=== PATIENT | male | born 1955 | race Caucasian/White ===

== ENCOUNTER 2017-02-10 09:53 | Emergency (ER) | payer OTHER ==
--- NOTE | 2017-02-10 11:11 | RAD ---
Indication: Loss of peripheral vision in LEFT lower LEFT eye. No additional neurologic deficits. Comparison: No relevant prior exams available on the [facility] for comparison. Technique: Noncontrast CT vertex of skull through foramen magnum. Report: The sulci, ventricles, and basal cisterns are normal for age. Maxwell matter white matter differentiation is preserved without evidence for edema. No intra or extra axial hemorrhage, mass, or fluid collection detected. Unremarkable orbital contents. Unremarkable calvarium and skull base. Unremarkable scalp. The visualized paranasal sinuses and mastoid air spaces are clear. IMPRESSION: Negative unenhanced head CT.
[2017-02-10 11:43] LABS: Hematocrit 40 % (42-52); Hemoglobin 13.6 g/dl (14.0-18.0); Mean Corpuscular HGB Conc 34 g/dl (31-36); Mean Corpuscular Hemoglobin 31 pg (27-31); Mean Corpuscular Volume 91 fL (80-94); Mean Platelet Volume 9 um3 (7.4-10.4); Red Blood Count 4.46 10^6/ul (4.0-5.4); Red Cell Distribution Width 13 % (10.5-15); White Blood Count 6.1 10^3/ul (3.5-10.8)
[2017-02-10 12:01] LABS: Albumin 4.1 g/dL (3.2-5.2); BUN/Creatinine Ratio 17.4 (8-20); EGFR African American 116.7 (>60); EGFR Non-African American 90.7 (>60); Globulin 2.5 g/dL (2-4); Potassium 4.1 mmol/L (3.5-5.0); Total Bilirubin 1.3 mg/dL (0.2-1.0); Total Protein 6.6 g/dL (6.4-8.9)
--- NOTE | 2017-02-10 12:34 | ED ---
Shabana Nguyen Auryana, scribed for Elijah Castrejon MD on 02/10/17 at 1232 . Throat Pain/Nasal Congestion - HPI Summary HPI Summary: 62 year old male presents with vision loss in the lower right visual field starting 5 days ago worse since 2 days ago. Patient states that 2 days ago - the area of vision loss increased. He also has a slight BUI. He denies any eye pain, increased lacrimation, or any prior episodes. He reports that he has not seen an sales operations specialist in the last 5 years. Per nurse - patient had dental work done the same day as the vision loss started. PMHx is significant for HTN , HLD, GERD, hiatal hernia, shoulder surgery, back surgery, and cholecystectomy. He is a former smoker with occasional alcohol use but denies any recreational drug use. FHx of CAD/OK. - History of Current Complaint Chief Complaint: EDEyeProblem Time Seen by Provider: 02/10/17 10:22 Onset/Duration: Gradual Onset, Lasting Days - 5, Still Present, Worse Since - 2 Severity: Moderate Associated Signs And Symptoms: Negative: Negative - DECREASED VISION IN LEFT EYE , SLIGHT BUI - Allergies/Home Medications Allergies/Adverse Reactions: Allergies Allergy/AdvReac Type Severity Reaction Status Date / Time Hydrochlorothiazide Allergy Dizziness Verified 11/23/15 16:41 [From Avalide] Irbesartan [From Avalide] Allergy Dizziness Verified 11/23/15 16:41 Nifedipine [From Adalat] Allergy Swelling Verified 11/23/15 16:41 PMH/Surg Hx/FS Hx/Imm Hx Endocrine/Hematology History: Denies: Hx Diabetes Cardiovascular History: Reports: Hx Hypercholesterolemia, Hx Hypertension Denies: Hx Congestive Heart Failure Respiratory History: Reports: Hx Asthma - A CHILD GI History: Reports: Hx Gall Bladder Disease - NOW, Hx Gastroesophageal Reflux Disease, Other GI Disorders - hiatal hernia History: Denies: Hx Renal Disease Musculoskeletal History: Reports: Hx Back Problems - 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 right shoulder 2001. REMOVAL OF CANCER ON R SIDE OF HEAD. REMOVAL OF BENIGN TUMER ON ABOVE OF L EYE, dajuan 1 2013 Hx Anesthesia Reactions: No Infectious Disease History: No Infectious Disease History: Denies: Traveled Outside the [place] in Last 30 Days - Social History Occupation: Employed Full-time Lives: With Family Alcohol Use: None Substance Use Type: Reports: None Smoking Status (MU): Former Smoker Review of Systems Constitutional: Negative Positive: Other - vision loss in the left eye ENT: Negative Cardiovascular: Negative Respiratory: Negative Gastrointestinal: Negative Genitourinary: Negative Musculoskeletal: Negative Skin: Negative Positive: Headache Psychological: Normal All Other Systems Reviewed And Are Negative: Yes Physical Exam - Summary Physical Exam Summary: VITAL SIGNS: Reviewed. GENERAL: Patient is a well developed and nourished male who is lying comfortable in the stretcher. Patient is not in any acute respiratory distress. HEAD AND FACE: No signs of trauma. No ecchymosis, hematomas or skull depressions. No sinus tenderness. EYES: PERRLA, EOMI x 2, No injected conjunctiva, no nystagmus. VISION LOSS IN THE PERIPHERAL, LOWER LEFT OUTER AND MEDIAL ASPECT OF THE EYE. EARS: Hearing grossly intact. Ear canals and tympanic membranes are within normal limits. MOUTH: Oropharynx within normal limits. NECK: Supple, trachea is midline, no adenopathy, no JVD, no carotid bruit, no c- spine tenderness, neck with full ROM. CHEST: Symmetric, no tenderness at palpation LUNGS: Clear to auscultation bilaterally. No wheezing or crackles. CVS: Regular rate and rhythm, S1 and S2 present, no murmurs or gallops appreciated. ABDOMEN: Soft, non-tender. No signs of distention. No rebound no guarding, and no masses palpated. Bowel sounds are normal. EXTREMITIES: FROM in all major joints, no edema, no cyanosis or clubbing. NEURO: Alert and oriented x 3. No acute neurological deficits. Speech is normal and follows commands. SKIN: Dry and warm Triage Information Reviewed: Yes Vital Signs On Initial Exam: Initial Vitals Temp Pulse Resp BP Pulse Ox 97.5 F 78 20 164/80 98 02/10/17 09:55 02/10/17 09:55 02/10/17 09:55 02/10/17 09:55 02/10/17 09:55 Vital Signs Reviewed: Yes - Stephanie Coma Scale Coma Scale Total: 15 Diagnostics - Vital Signs Vital Signs Temp Pulse Resp BP Pulse Ox 02/10/17 09:59 97.4 F 79 16 164/80 100 02/10/17 09:55 97.5 F 78 20 164/80 98 - Laboratory Lab Results: Lab Results 02/10/17 02/10/17 02/10/17 Range/Units 11:31 11:31 11:31 WBC 6.1 (3.5-10.8) 10^3/ul RBC 4.46 (4.0-5.4) 10^6/ul Hgb 13.6 L (14.0-18.0) g/dl Hct 40 L (42-52) % MCV 91 (80-94) fL MCH 31 (27-31) pg MCHC 34 (31-36) g/dl RDW 13 (10.5-15) % Plt Count 182 (150-450) 10^3/ul MPV 9 (7.4-10.4) um3 Neut % (Auto) 63.8 (38-83) % Lymph % (Auto) 26.1 (25-47) % Magoffin % (Auto) 7.5 (1-9) % Eos % (Auto) 1.7 (0-6) % Baso % (Auto) 0.9 (0-2) % Absolute Neuts (auto) 3.9 (1.5-7.7) 10^3/ul Absolute Lymphs (auto) 1.6 (1.0-4.8) 10^3/ul Absolute Monos (auto) 0.5 (0-0.8) 10^3/ul Absolute Eos (auto) 0.1 (0-0.6) 10^3/ul Absolute Basos (auto) 0.1 (0-0.2) 10^3/ul Absolute Nucleated RBC 0.01 10^3/ul Nucleated RBC % 0.1 ESR Pending APTT 29.2 (26.0-36.3) seconds Sodium (133-145) mmol/L Potassium (3.5-5.0) mmol/L Chloride (101-111) mmol/L Carbon Dioxide (22-32) mmol/L Anion Gap (2-11) mmol/L BUN (6-24) mg/dL Creatinine (0.67-1.17) mg/dL Est GFR ( Amer) (>60) Est GFR (Non-Af Amer) (>60) BUN/Creatinine Ratio (8-20) Glucose (70-100) mg/dL Lactic Acid 1.5 (0.5-2.0) mmol/L Calcium (8.6-10.3) mg/dL Total Bilirubin (0.2-1.0) mg/dL AST (13-39) U/L ALT (7-52) U/L Alkaline Phosphatase (34-104) U/L Total Protein (6.4-8.9) g/dL Albumin (3.2-5.2) g/dL Globulin (2-4) g/dL Albumin/Globulin Ratio (1-3) // Range/Units 11:31 WBC (3.5-10.8) 10^3/ul RBC (4.0-5.4) 10^6/ul Hgb (14.0-18.0) g/dl Hct (42-52) % MCV (80-94) fL MCH (27-31) pg MCHC (31-36) g/dl RDW (10.5-15) % Plt Count (150-450) 10^3/ul MPV (7.4-10.4) um3 Neut % (Auto) (38-83) % Lymph % (Auto) (25-47) % Magoffin % (Auto) (1-9) % Eos % (Auto) (0-6) % Baso % (Auto) (0-2) % Absolute Neuts (auto) (1.5-7.7) 10^3/ul Absolute Lymphs (auto) (1.0-4.8) 10^3/ul Absolute Monos (auto) (0-0.8) 10^3/ul Absolute Eos (auto) (0-0.6) 10^3/ul Absolute Basos (auto) (0-0.2) 10^3/ul Absolute Nucleated RBC 10^3/ul Nucleated RBC % ESR APTT (26.0-36.3) seconds Sodium 136 (133-145) mmol/L Potassium 4.1 (3.5-5.0) mmol/L Chloride 103 (101-111) mmol/L Carbon Dioxide 24 (22-32) mmol/L Anion Gap 9 (2-11) mmol/L BUN 15 (6-24) mg/dL Creatinine 0.86 (0.67-1.17) mg/dL Est GFR ( Amer) 116.7 (>60) Est GFR (Non-Af Amer) 90.7 (>60) BUN/Creatinine Ratio 17.4 (8-20) Glucose 105 H (70-100) mg/dL Lactic Acid (0.5-2.0) mmol/L Calcium 9.0 (8.6-10.3) mg/dL Total Bilirubin 1.30 H (0.2-1.0) mg/dL AST 16 (13-39) U/L ALT 24 (7-52) U/L Alkaline Phosphatase 41 (34-104) U/L Total Protein 6.6 (6.4-8.9) g/dL Albumin 4.1 (3.2-5.2) g/dL Globulin 2.5 (2-4) g/dL Albumin/Globulin Ratio 1.6 (1-3) Result Diagrams: 02/10/17 11:31 02/10/17 11:31 Lab Statement: Any lab studies that have been ordered have been reviewed, and results considered in the medical decision making process. Re-Evaluation - Re-Evaluation First Eval Re-Evaluation Time: 11:30 Change: Unchanged EENT Course/Dx - Course Assessment/Plan: 62 year old male presents with vision loss in the lower right visual field starting 5 days ago worse since 2 days ago. Patient states that 2 days ago - the area of vision loss increased. He also has a slight BUI. He denies any eye pain, increased lacrimation, or any prior episodes. He reports that he has not seen an sales operations specialist in the last 5 years. PMHx is significant for HTN, HLD, GERD, hiatal hernia, shoulder surgery, back surgery, and cholecystectomy. He is a former smoker with occasional alcohol use but denies any recreational drug use. FHx of CAD/OK. Blood work wnl except for glucose of 105. Head CT impression by radiology: negative head CT. Patient Visual acuity as above. Discussed with Dr. Garg (Neurologist) thinks that patient has a primarily ocular pathology and recommends an ophthalmology consult. Patient is hemodynamically stable and alert and oriented x 3. I discussed all the findings and test results with the patient. Patient was instructed to return to the emergency room immediately if any of the symptoms return or worsens. Plan of care was discussed with the patient and understands and agrees. All questions were answered at patient satisfaction. There were no further complaints or concerns. Lung exam before discharge: CTA B/L. Good air exchange. No wheezing or crackles heard. CVS: S1 and S2 present. No murmurs appreciated. Patient is alert and oriented x 3. Patient is hemodynamically stable. Patient will be discharged home with follow up PCP in the next 2-3 days - Diagnoses Provider Diagnoses: DECREASED VISUAL ACUITY - LEFT EYE - Provider Notifications Discussed Care of Patient with: DR. GARG Time Discussed With Above Provider: 12:23 - BELIEVES PRIMARY AN OPTHALAMICAL ABNORMALITY Discharge - Discharge Plan Condition: Stable Disposition: HOME Referrals: Elijah Karimi MD [Medical Doctor] - 3 Days The documentation as recorded by the Shabana magana Auryana accurately reflects the service I personally performed and the decisions made by me, Elijah Castrejon MD.
[2017-02-10 12:41] VITALS: BP 141/82
[2017-02-10 13:35] LABS: Erythrocyte Sed Rate 11 mm/Hr (0-20)
== END 2017-02-10 12:42 | disposition home or self-care (01) ==
LOC: ED 09:53
DX: H54.7 Unspecified visual loss (principal); K21.9 Gastro-esophageal reflux disease without esophagitis; F90.9 Attention-deficit hyperactivity disorder, unspecified type; Z87.891 Personal history of nicotine dependence; I10 Essential (primary) hypertension; E78.00 Pure hypercholesterolemia, unspecified
CPT/HCPCS: 36415; 70450; 80053; 83605; 85025; 85652; 85730; 99283

== ENCOUNTER 2019-01-14 14:41 | Emergency (ER) | payer OTHER ==
[2019-01-14] MEDS ORDERED: Famotidine IV * 20 MG in NS 0.9% 100 ML* 100 ML IVPB ONE (14:51)
[2019-01-14] MEDS ORDERED: Ondansetron INJ* 2 MG/ML VIAL IV ONE (14:52)
[2019-01-14] MEDS ORDERED: Lactated Ringers 1000 ML Bag* 1,000 ML IV SCH (15:00)
[2019-01-14 15:09] LABS: ABS Basophils 0.1 10^3/ul (0-0.2); ABS Eosinophils 0.1 10^3/ul (0-0.6); ABS Lymphocytes 1.5 10^3/ul (1.0-4.8); ABS Monocytes 0.7 10^3/ul (0-0.8); ABS Neutrophils 8.7 10^3/ul (1.5-7.7); ABS Nucleated RBC 0 10^3/ul; Eosinophil % 1.2 %; Hematocrit 41 % (36-46); Lymphocyte % 13.8 %; Mean Corpuscular HGB Conc 34 g/dL (31-36); Mean Corpuscular Hemoglobin 31 pg (27-31); Mean Corpuscular Volume 91 fL (80-94); Mean Platelet Volume 8.6 fL (7.4-10.4); Nucleated Red Blood Cells % 0; Platelet Count 221 10^3/uL (150-450); Red Blood Count 4.47 10^6 /uL (4.18-5.48); Red Cell Distribution Width 13 % (10.5-15); White Blood Count 11.2 10^3/uL (3.5-10.8)
[2019-01-14 15:17] LABS: Activated Partial Thrombo Time 32.1 seconds (26.0-36.3); INR 0.97 (0.82-1.09)
--- NOTE | 2019-01-14 15:35 | ED ---
Abdominal Pain/Male - HPI Summary HPI Summary: Pt is a 64 y/o M presenting to the ED with a chief complaint of LLQ abd pain onset about 4 hours ago. The pain is described as aching, rated at a constant 4/ 10, radiating across his lower abd to his midline, and came on right after lunch. Pt reports associated nausea, vomiting, and a small headache. The pt reports his appetite was fine until the pain came on. His pain is worsened upon sitting up, and slightly alleviates with lying flat. He denies fever, chills, diaphoresis, CP, SOB, changes in vision or hearing, sore throat, cough, congestion, black or bloody stools, urinary sx, or significant involuntary weight loss/gain. The pt has a notable hx of diverticulitis, and the last time he had an attack, his physician said he would have to have surgery d/t finding of a hole in his bowels. - History of Current Complaint Chief Complaint: EDAbdPain Stated Complaint: ABD PAIN PER PT Time Seen by Provider: 01/14/19 14:49 Hx Obtained From: Patient Onset/Duration: Sudden Onset, Lasting Hours, Still Present Timing: Constant, Lasting Hours Severity Initially: Moderate Severity Currently: Moderate Pain Intensity: 4 Pain Scale Used: 0-10 Numeric Location: Discrete At: LLQ Radiates: Yes Radiates to: RLQ Character: Cramping Aggravating Factor(s): Other: - sitting up Alleviating Factor(s): Position - lying supine Associated Signs And Symptoms: Positive: Nausea, Vomiting. Negative: Diaphoresis, Fever, Cough, Chest Pain, Blood in Stool, Urinary Symptoms - Allergies/Home Medications Allergies/Adverse Reactions: Allergies Allergy/AdvReac Type Severity Reaction Status Date / Time hydrochlorothiazide Allergy Intermediate Dizziness Verified 01/14/19 14:47 [From Avalide] irbesartan [From Avalide] Allergy Intermediate Dizziness Verified 01/14/19 14:47 nifedipine [From Adalat] Allergy Intermediate Swelling Verified 01/14/19 14:47 tadalafil [From Cialis] Allergy Unknown Verified 01/14/19 14:47 Reaction Details PMH/Surg Hx/FS Hx/Imm Hx Previously Healthy: No Endocrine/Hematology History: Denies: Hx Diabetes Cardiovascular History: Reports: Hx Hypercholesterolemia, Hx Hypertension Denies: Hx Congestive Heart Failure, Hx Pacemaker/ICD Respiratory History: Reports: Hx Asthma - A CHILD GI History: Reports: Hx Gall Bladder Disease - NOW, Hx Gastroesophageal Reflux Disease, Other GI Disorders - hiatal hernia, diverticulitis History: Denies: Hx Renal Disease Musculoskeletal History: Reports: Hx Back Problems - 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 right shoulder 2001. REMOVAL OF CANCER ON R SIDE OF HEAD. REMOVAL OF BENIGN TUMER ON ABOVE OF L EYE, dajuan 2013. GALLBLADDER Hx Anesthesia Reactions: No Infectious Disease History: No Infectious Disease History: Denies: Traveled Outside the [place] in Last 30 Days - Family History Known Family History: Positive: Hypertension - Social History Alcohol Use: Weekly Hx Substance Use: No Substance Use Type: Reports: None Hx Tobacco Use: Yes Smoking Status (MU): Former Smoker Review of Systems Negative: Fever, Chills, Skin Diaphoresis, Other - involuntary weight loss/gain Eyes: Negative Negative: Sore Throat, Other - congestion Negative: Chest Pain Negative: Shortness Of Breath, Cough Positive: Abdominal Pain, Vomiting, Nausea. Negative: Other - black/bloody stools, any changes in BMs Genitourinary: Negative Positive: Headache All Other Systems Reviewed And Are Negative: Yes Physical Exam - Summary Physical Exam Summary: Constitutional: Well-developed, Well-nourished, Alert. (-) Distressed Skin: Warm, Dry, Reflects adequate perfusion HENT: Normocephalic; Atraumatic Eyes: Conjunctiva normal Neck: Musculoskeletal ROM normal neck. (-) JVD, (-) Stridor, (-) Tracheal deviation Cardio: Rhythm regular, rate normal, Heart sounds normal; Intact distal pulses; The pedal pulses are 2+ and symmetric. Radial pulses are 2+ and symmetric. Pulmonary/Chest wall: Effort normal. (-) Respiratory distress, (-) Wheezes, (-) Rales Abd: Soft, (+) LLQ tenderness radiating to midline, (-) Distension, (-) Guarding , (-) Rebound Musculoskeletal: 2+ pitting edema on LLE noted from pts L sock. Pts R sock has lost elasticity so true measurement and comparison is not fully obtainable. There are good pedal pulses. Neuro: Alert, Oriented x3 Psych: Mood and affect Normal Triage Information Reviewed: Yes Vital Signs On Initial Exam: Initial Vitals Temp Pulse Resp BP Pulse Ox 98.3 F 73 18 181/87 97 01/14/19 14:44 01/14/19 14:44 01/14/19 14:44 01/14/19 14:44 01/14/19 14:44 Vital Signs Reviewed: Yes Diagnostics - Vital Signs Vital Signs Temp Pulse Resp BP Pulse Ox 01/14/19 15:13 78 98 01/14/19 15:11 80 172/88 97 01/14/19 14:44 98.3 F 73 18 181/87 97 - Laboratory Lab Results: Lab Results 01/14/19 01/14/19 01/14/19 Range/Units 15:01 15:01 15:01 WBC 11.2 H (3.5-10.8) 10^3/uL RBC 4.47 (4.18-5.48) 10^6 /uL Hgb 14.0 (14.0-18.0) g/dL Hct 41 (36-46) % MCV 91 (80-94) fL MCH 31 (27-31) pg MCHC 34 (31-36) g/dL RDW 13 (10.5-15) % Plt Count 221 (150-450) 10^3/uL MPV 8.6 (7.4-10.4) fL Neut % (Auto) 77.1 % Lymph % (Auto) 13.8 % Schuyler % (Auto) 6.6 % Eos % (Auto) 1.2 % Baso % (Auto) 1.3 % Absolute Neuts (auto) 8.7 H (1.5-7.7) 10^3/ul Absolute Lymphs (auto) 1.5 (1.0-4.8) 10^3/ul Absolute Monos (auto) 0.7 (0-0.8) 10^3/ul Absolute Eos (auto) 0.1 (0-0.6) 10^3/ul Absolute Basos (auto) 0.1 (0-0.2) 10^3/ul Absolute Nucleated RBC 0 10^3/ul Nucleated RBC % 0 INR (Anticoag Therapy) 0.97 (0.82-1.09) APTT 32.1 (26.0-36.3) seconds Sodium Pending Potassium Pending Chloride Pending Carbon Dioxide Pending Anion Gap Pending BUN Pending Creatinine Pending Est GFR ( Amer) Pending Est GFR (Non-Af Amer) Pending BUN/Creatinine Ratio Pending Glucose Pending Calcium Pending Magnesium Pending Total Bilirubin Pending AST Pending ALT Pending Alkaline Phosphatase Pending Troponin I 0.00 (<0.04) ng/mL Total Protein Pending Albumin Pending Globulin Pending Albumin/Globulin Ratio Pending Lipase Pending Result Diagrams: 01/14/19 15:01 01/14/19 15:01 Lab Statement: Any lab studies that have been ordered have been reviewed, and results considered in the medical decision making process. - CT Abd/pelv CT CT Interpretation Completed By: Radiologist Summary of CT Findings: Diffuse wall thickening of the sigmoid colon with extensive diverticulosis in this region. However, there is no associated pericolonic fat stranding or inflammatory change. Findings could represent colitis with mild mural thickening versus artifact from under distention in transverse and left colon. Subtle diverticulitis less likely. Radiographic followup is recommended to ensure resolution as underlying neoplasm is not excluded. ED physician has reviewed this report. - Ultrasound No standard instances Ultrasound Interpretation Completed By: Radiologist Summary of Ultrasound Findings: Bilateral LE US. No evidence for left or right DVT. ED physician has reviewed this report. - EKG 1505 Cardiac Rate: NL - 87bpm EKG Rhythm: Sinus Rhythm ST Segment: Non-Specific Ectopy: None EKG Comparison: No Significant Change Summary of EKG Findings: An EKG at 1505 shwos NSR 87bpm with old, nonspecific T wave abnormalities, old inferior Q waves, QTc increase from 427 to 276, and nonspecific IVCD. QTc is slightly increased from 07/12/14, otherwise no acute changes. Abdominal Pain Male Course/Dx - Course Course Of Treatment: Pt is a 64 y/o M presenting to the ED with a chief complaint of LLQ abd pain onset about 4 hours ago. The pain is described as aching, rated at a constant 4/10, radiating across his lower abd to his midline , and came on right after lunch. Pt reports associated nausea, vomiting, and a small headache. The pt reports his appetite was fine until the pain came on. His pain is worsened upon sitting up, and slightly alleviates with lying flat. He denies fever, chills, diaphoresis, CP, SOB, changes in vision or hearing, sore throat, cough, congestion, black or bloody stools, urinary sx, or significant involuntary weight loss/gain. The pt has a notable hx of diverticulitis, and the last time he had an attack, his physician said he would have to have surgery d/t finding of a hole in his bowels. In the ED course, the pt received Pepcid and Zofran to alleviate his nausea. D/t LE edematous findings on physical exam, a duplex US has been ordered to r/o a blood clot. CT with IV contrast has also been ordered to r/o diverticulitis. An EKG at 1505 shwos NSR 87bpm with old, nonspecific T wave abnormalities, old inferior Q waves , QTc increase from 427 to 276, and nonspecific IVCD. QTc is slightly increased from 07/12/14, otherwise no acute changes. Pts chemistry shows magnesium of 1.7, lactic acid of 1.4, troponin of 0.00, and bloodwork shows slightly elevated WBC of 11.2. Bilat LE US shows no left or right DVT. Abd/pelv CT shows: Diffuse wall thickening of the sigmoid colon with extensive diverticulosis in this region. However, there is no associated pericolonic fat stranding or inflammatory change. Findings could represent colitis with mild mural thickening versus artifact from under distention in transverse and left colon. Subtle diverticulitis less likely. Radiographic followup is recommended to ensure resolution as underlying neoplasm is not excluded. Since the CT abd/ pelv shows diverticulosis and potentially diverticulitis, I will be discharging the pt home with instructions to follow up with his surgeon, and dx of colitis, diverticulosis, and early diverticulitis. He is stable and has been so during the whole shift. - Diagnoses Provider Diagnoses: Colitis, Diverticulosis, Diverticulitis Discharge - Sign-Out/Discharge Documenting (check all that apply): Patient Departure Patient Received Moderate/Deep Sedation with Procedure: No - Discharge Plan Condition: Good Disposition: HOME Prescriptions: Ciprofloxacin TAB* [Cipro 500 MG TAB*] 500 mg PO BID #19 tab metroNIDAZOLE [Flagyl 500 MG TAB] 500 mg PO TID #29 tab Patient Education Materials: Diverticulitis (ED) Print Language: CHINESE Forms: *Gen. Provider Communication Referrals: Pernell Andino MD [Primary Care Provider] - Additional Instructions: as tolerated - Billing Disposition and Condition Condition: GOOD Disposition: Home - Attestation Statements Document Initiated by Scribe: Yes Documenting Scribe: Neris Crowley Provider For Whom Ulises is Documenting (Include Credential): Ziggy Torres MD. Scribe Attestation: Neris Nguyen scribed for Ziggy Torres MD. on 01/14/19 at 1913. Scribe Documentation Reviewed: Yes Provider Attestation: The documentation as recorded by the Neris magana accurately reflects the service I personally performed and the decisions made by me, Ziggy Torres MD. Status of Scribe Document: Viewed
[2019-01-14 15:36] LABS: Albumin 4.5 g/dL (3.2-5.2); Albumin/Globulin Ratio 1.9 (1-3); BUN/Creatinine Ratio 19.4 (8-20); Calcium 9.2 mg/dL (8.6-10.3); EGFR African American 93.8 (>60); EGFR Non-African American 77.5 (>60); Globulin 2.4 g/dL (2-4); Magnesium 1.7 mg/dL (1.9-2.7); Potassium 3.8 mmol/L (3.5-5.0); Total Protein 6.9 g/dL (6.4-8.9)
[2019-01-14 16:14] LABS: Urine Appearance Clear; Urine Bilirubin Negative (Negative); Urine Blood Negative (Negative); Urine Color Straw; Urine Glucose Negative (Negative); Urine Ketones Negative (Negative); Urine Nitrite Negative (Negative); Urine Protein Negative (Negative); Urine Specific Gravity 1.005 (1.010-1.030); Urine Urobilinogen Negative (Negative)
[2019-01-14] MEDS ORDERED: Iohexol 300* (CONTRAST) 10 ML SDV IV ONE (16:19)
[2019-01-14] MEDS ORDERED: metroNIDAZOLE TAB* 250 MG PO ONE (19:04)
[2019-01-14] MEDS ORDERED: Ciprofloxacin TAB* 500 MG PO ONE (19:04)
[2019-01-14 19:30] VITALS: BP 169/89
== END 2019-01-14 19:30 | disposition home or self-care (01) ==
LOC: ED 14:41
DX: K52.9 Noninfective gastroenteritis and colitis, unspecified (principal); K57.90 Diverticulosis of intestine, part unspecified, without perforation or abscess without bleeding; K57.92 Diverticulitis of intestine, part unspecified, without perforation or abscess without bleeding; R94.31 Abnormal electrocardiogram [ECG] [EKG]; I10 Essential (primary) hypertension; E78.00 Pure hypercholesterolemia, unspecified; K21.9 Gastro-esophageal reflux disease without esophagitis; K82.9 Disease of gallbladder, unspecified; F90.9 Attention-deficit hyperactivity disorder, unspecified type; R60.0 Localized edema; Z88.8 Allergy status to other drugs, medicaments and biological substances; Z79.899 Other long term (current) drug therapy; Z85.828 Personal history of other malignant neoplasm of skin; Z87.891 Personal history of nicotine dependence
CPT/HCPCS: 36415; 74177; 80053; 81003; 83605; 83690; 83735; 84484; 85025; 85610; 85730; 93005; 93970; 96365; 96375; 99283; A9270-GY; J2405; Q9967

== ENCOUNTER 2020-01-01 02:41 | Emergency (ER) | payer OTHER ==
[2020-01-01] MEDS ORDERED: NS 0.9% 1000 ML** 1,000 ML IV ONE (03:14)
[2020-01-01] MEDS ORDERED: Ondansetron INJ* 2 MG/ML VIAL IV ONE (03:14)
--- OUTSIDE RECORDS SUMMARY | 2020-01-01 03:59 | XMS REPORT | Continuity of Care Document ---
:1955 External Reference #:[id number] Author Name Lyndsey Lopez NP (transmitted by agent of provider Gabrielle Hansen) Address [address] [place] [address] Care Team Providers Name Role Phone Beny Cramer - Neurological Care Team Information Stave Log Cut Off Saw Operator Surgery Pernell Andino MD - Family Medicine Care Team Information Stave Log Cut Off Saw Operator [phone] Giovanni Sood ([place] - [facility]) Care Team Information Stave Log Cut Off Saw Operator - Otolaryngology Perez Aragon MD - Care Team Information Stave Log Cut Off Saw Operator [phone] Gastroenterology Isabell Gonzalez PA-C - Care Team Information Stave Log Cut Off Saw Operator [phone] Gastroenterology Problems Active Problems Provider Date Attention deficit hyperactivity disorder Pernell Andino M.D. Onset: 2006 Mixed hyperlipidemia Pernell Andino M.D. 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 Onset: 09/24/2012 Essential hypertension Pernell Andino M.D. Onset: 04/26/2009 Gastroesophageal reflux disease Pernell Andino M.D. Onset: 07/21/2008 Pure hypercholesterolemia Pernell Andino M.D. Onset: 07/21/2008 Benign essential hypertension Pernell Andino M.D. Onset: 12/23/2007 Benign neoplasm of colon Pernell Andino M.D. 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 Medications Active Medications SIG Qnty Indications Ordering Date Provider Pantoprazole Sodium Take 1 Tablet By 90tabs Pernell Norris 09/29/2018 40mg Mouth Every Day Dorota Andino Tablets Metoprolol Succinate ER take 1 tablet by 90tabs Giovanni Rhodes 02/14/2017 mouth once daily Dorota Fritz 50mg Tablets ER 24HR Methylphenidate HCL take 2 tabs in 150tabs Pernell Norris 09/27/2015 10mg am; 1-1/2 tabs Dorota Andino Tablets afternoon, 1-1/2 in pm; dispense one-fifty Amlodipine Besylate Take 1 Tablet By 90tabs I10 Pernell Andino 08/17/2013 10mg Mouth Every MD Tablets Evening Atorvastatin Calcium take 1 tablet by 90tabs E78.0 Pernell Norris 06/10/2006 20mg mouth at bedtime Dorota Andino Tablets Lisinopril 1 by mouth every 30tabs Unknown 2.5mg Tablets day Aspirin Ec 1 by mouth every 100tabs Unknown 81mg Tablets DR day Medications Administered in Office Medication SIG Qnty Indications Ordering Provider Date TB Intradermal Test Pernell Andino M.D. 09/24/2010 Injection Immunizations CPT Code Status Date Vaccine Lot # [id number] Given 07/14/2018 Influenza Vac, Quadriv[place], [place] [address] Given 06/08/2018 Tetanus And Diptheria Adult Preservative Free [id number] >7Yrs 72055 Given 06/28/2014 DO Not Use Split Influenza Virus Vaccine [id number] 06221 Given 06/23/2013 DO Not Use Split Influenza Virus Vaccine [id number] 90079 Given 07/23/2011 DO Not Use Split Influenza Virus Vaccine [id number] 61593 Given 12/23/2007 Tdap Tetanus, W Pertussis [id number] 22609 Given 2000 Mumps Immunization Vital Signs Date Vital Result Comment 08/30/2019 1:47pm BP Systolic 132 mmHg 142 syst on arrival BP Diastolic 72 mmHg 142 syst on arrival Heart Rate 68 /min Body Temperature 97.9 F Respiratory Rate 16 /min Height 72 inches 6'0" Weight 240.00 lb BMI (Body Mass Index) 32.5 kg/m2 01/19/2019 11:24am BP Systolic 138 mmHg BP Diastolic 78 mmHg Heart Rate 58 /min Body Temperature 98.6 F Respiratory Rate 16 /min Height 72 inches 6'0" Weight 237.00 lb BMI (Body Mass Index) 32.1 kg/m2 Results Test Acquired Facility Test Result H/L Range Note Date Laboratory test 12/27/2019 [facility] Covid19, PCR Undetected Undetected 1 finding Laboratory test 10/01/2019 [facility] Surgical SEE RESULT 2 finding Pathology BELOW Order Comprehensive 08/18/2019 Mitchel Violet(fma) Sodium 138 mEq/L 134-149 Metabolic Prof Potassium 4.6 mEq/L 3.6-5.5 Chloride 107 mEq/L 94-112 Carbon Dioxide 27 mEq/L 21-32 Glucose 115 mg/dL High 70-105 3 BUN 18 mg/dL 6-26 Creatinine 0.9 mg/dL 0.6-1.4 BUN/Creat Ratio 20.0 CALC 8.0-36.0 Calcium 10.1 mg/dL 8.6-10.2 Total Protein 7.6 g/dL 6.4-8.3 Albumin 5.3 g/dL 3.8-5.5 Globulin 2.3 g/dL 2.0-4.8 A/G Ratio 2.3 CALC 0.6-2.3 Alk. Phosphatase 48 U/L 22-95 Alt (SGPT) 52 U/L High 7-35 4 Ast (Sgot) 31 U/L 5-34 Total Bilirubin 1.3 mg/dL 0.2-1.3 GFR Non- >60 ml/min/1.73m^ >=60 GFR >60 ml/min/1.73m^ >=60 Lipid Profile 08/18/2019 [facility] Violet([facility]ma) Cholesterol 159 mg/dL 120- 200 Triglycerides 164 mg/dL 30-200 HDL Cholesterol 55 mg/dL 30-70 LDL (Calculated) 71 CALC 0-129 VLDL Cholesterol 33 mg/dL 0-50 HDL Risk Factor 2.9 CALC 0.0-4.4 CBC Electronic a 08/18/2019 Mitchel Lazo([facility]) WBC 7.9 x10^3/UL 4.0- 10.0 RBC 4.75 x10^6/UL 3.93-6.00 HGB 14.7 g/dL 12.0-17.0 HCT 44 % 35-50 MCV 93.1 fL 80.0-95.0 MCH 30.9 pg 25.6-32.2 MCHC 33.3 g/dL 32.2-36.0 RDW-CV 11.6 % 11.6-14.4 PLT 223 x10^3/UL 163-400 MPV 10.2 fL 9.4-12.4 Davi# 5.43 x10^3/UL 1.56-6.13 Lymph# 1.71 x10^3/UL 1.18-3.74 Centre# 0.55 x10^3/UL 0.24-0.82 Eos # 0.1 x10^3/UL 0.0-0.5 Baso # 0.05 x10^3/UL 0.01-0.08 Davi% 68.9 % 34.0-70.0 Lymph % 21.7 % 20.0-52.0 Centre% 7.0 % 5.0-12.0 Eos% 1.5 % 0.7-7.0 Baso% 0.6 % 0.1-1.2 Laboratory test finding 08/18/2019 Mitchel Lazo([facility]) PSA 0.3 ng/mL 0.0 -4.0 1 SARS-CoV-2 RNA is not detected. ADDITIONAL INFORMATION Testing was performed using the samira SARS-CoV-2 assay ([employer] on the samira 6800 System. Fact sheets for this Emergency Use Authorization (EUA) assay can be found at the following links: For Healthcare Providers: https://www.fda.gov/media/072111/download For Patients: https://www.fda.gov/media/079093/download Test Performed by: [facility] [address] [place] [address] Procurement Services Manager: Chad Koch M.D. Ph.D.; IA# [id number] 2 SEE RESULT BELOW Name: DELMA KLEIN : [address]: Jeffery Rebolledo MD Acct: [id number] Unit: [id number] AGE: 64 Location: ENDO Re10/01/19 SEX: M Status: DEP REF SPEC: [id number] MICHELL: 10/01/19- SUBM DR: Jeffery Rebolledo MD REQ: [id number] RECD: 10/01/19 STATUS: BEN NEWSOME DR: Pernell Andino MD _ ORDERED: LEVEL 4/5 FINAL DIAGNOSIS 1. Stomach, body, biopsy: -- Fundic gland polyp. 2. Gastroesophageal junction, biopsy: -- Benign squamous and columnar-type mucosa with chronic inflammation and intestinal metaplasia. -- Dysplasia is absent. 3. Colon, at 70 cm, biopsy: -- Tubular adenoma. -- No high grade dysplasia or malignancy. 4. Colon, at 65 cm, biopsy: -- Tubular adenoma. -- No high grade dysplasia or malignancy. 5. Colon, at 35 cm, biopsy: -- Hyperplastic polyp. POST-OPERATIVE DIAGNOSIS EGD: esophagus - salmon pink; biopsy; gastric - biopsy; duodenum - normal; colonoscopy: to terminal ileum; at 70 cm large polyp biopsy; at 65 cm snare clip tattoo; at 35 cm biopsy; diverticulosis CONTINUED ON NEXT PAGE DEPARTMENT OF PATHOLOGY, [address] [place] [address] Ruben Mota M.D. Director [facility] # [id number] GROSS DESCRIPTION 1. The specimen is received in formalin labeled, Biopsy Gastric Body, and consists of a 0.8 x 0.2 x 0.1 cm sanders-pink irregular soft tissue fragment which is submitted entirely in one cassette. 2. The specimen is received in formalin labeled, Biopsy GE Junction, and consists of a 0.4 x 0.3 x 0.1 cm sanders-pink irregular soft tissue fragment which is submitted entirely in one cassette. 3. The specimen is received in formalin labeled, Biopsy Colon Polyp at 70 cm, and consists of two sanders-pink irregular soft tissue fragments measuring 0.2 x 0.1 x 0.1 cm and 0.2 x 0.2 x 0.1 cm which are submitted entirely in one cassette. 4. The specimen is received in formalin labeled, Colon Polyp at 65 cm, and consists of a 0.9 x 0.5 up to 0.3 cm aggregate of sanders-pink irregular to polypoid soft tissue fragments which is submitted entirely in one cassette. 5. The specimen is received in formalin labeled, Biopsy Colon Polyp at 35 cm, and consists of two sanders-pink irregular soft tissue fragments measuring 0.3 x 0.2 x 0.1 cm and 0.8 x 0.2 x 0.1 cm which are submitted entirely in one cassette. Signed by and Reported on: Estrella Ley MD 10/04/19 1428 END OF REPORT DEPARTMENT OF PATHOLOGY, [address] [place] [address] Ruben Mota M.D. Director [facility] # [id number] 3 RESULTS VERIFIED BY REPEAT ANALYSIS 4 consistent w/ previous results Procedures Date Code Description Status 08/30/2019 72189 CPHL SHQ Completed 02/13/2016 [id number] Colonoscopy Completed 10/04/2011 [id number] Colonoscopy Completed 11/24/2007 [id number] Colonoscopy Completed Medical Devices Description No Information Available Encounters Type Date Location Provider Dx Diagnosis Office Visit 12/28/2019 Main Office Lyndsey Vazquez R19.7 Diarrhea, unspecified 11:00a NICOLLE Lopez R05 Cough Z71.9 Counseling, unspecified Office Visit 08/30/2019 2:00p [facility] Pernell Norris Z00.01 Encounter for Dorota Andino general adult medical exam w abnormal findings R49.0 Dysphonia E78.2 Mixed hyperlipidemia I10 Essential (primary) hypertension K21.9 Gastro-esophageal reflux disease without esophagitis F90.0 Attn-defct hyperactivity disorder, predom inattentive type K57.90 Dvrtclos of intest, part unsp, w/o perf or abscess w/o bleed Z12.2 Encntr screen for malignant neoplasm of respiratory organs Assessments Date Code Description Provider 12/28/2019 R19.7 Diarrhea, unspecified Lyndsey Lopez, NICOLLE 12/28/2019 R05 Cough Lyndsey Lopez, [employer] 12/28/2019 Z71.9 Counseling, unspecified Lyndsey Lopez, NICOLLE 08/30/2019 Z00.01 Encounter for general adult medical Pernell Andino M.D. examination with abnormal findings 08/30/2019 R49.0 Dysphonia Pernell Andino M.D. 08/30/2019 E78.2 Mixed hyperlipidemia Pernell Andino M.D. 08/30/2019 I10 Essential (primary) hypertension Pernell Andino M.D. 08/30/2019 K21.9 Gastro-esophageal reflux disease without Pernell Andino M.D. esophagitis 08/30/2019 F90.0 Attention-deficit hyperactivity disorder, Pernell A. Darlow, M.D. predominantly inattentive type 08/30/2019 K57.90 Diverticulosis of intestine, part Pernell Andino M.D. unspecified, without perfo 08/30/2019 Z12.2 Encounter for screening for malignant Pernell Andino M.D. neoplasm of respiratory organs 08/18/2019 Z00.00 Encntr for general adult medical exam w/o Pernell Andino M.D. abnormal findings Plan of Treatment 12/28/2019 - Lyndsey Lopez, NPR19.7 Diarrhea, unspecifiedComments:Imodium: Take 2 tablets (4mg total) after next episode of diarrheaTake 1 tablet (2mg) with each subsequent episodeMaximum of 8 tablets (16mg)Drink lots of clear fluidsBland dietRemember good handwashing If worsening or not improving, contact office or seek medical care. Try to replace the good bacteria with the following: proboticsyogurtKombuchaKiefer YiwxcuYclyF45 CoughComments:Coughing is rough on your system. Not only do they make you really tired but they dehydrate you really quickly! Supportive care: 1) Make sure you are resting. This is the only way the body can take theenergy it needs to heal itself. 2) Fluids, fluids, fluids! - Drink a lot of water or other caffeinefree, clear liquids - Use a humidifier in your room at night - If tolerated, use a saline nasal spray to help clear out your sinuses 3) Cough and blow it out, the more you can get out of your system the better4) Make sure you are washing your hands well so you are not spreading your illness to the community. 5) You can take Acetaminophen or Ibuprofen as directed for pain Call or return if iktcvjjuyyeomldjqE51.9 Counseling, unspecifiedComments:Covid tests are pending, will touch base if anything changes in the meantime. Until we know for sure, treat this as if you are covid positive. If you have possible or confirmed COVID -19:1. Stay home from work, school, and away from other public places. If you must go out, avoid using any kind of public transportation, ride sharing, or taxis.2. All close contacts and household members should self-isolate at home3. Monitor your symptoms carefully. If your symptoms get worse, call our office [phone]. Most cases of COVID-19 are mild and can be cared for at home. 4. Get rest and stay hydrated.5. Ifyou have a medical appointment, call the healthcare provider ahead of time and tell them that you have or may have COVID-19.6. For medical emergencies, call 911 and notify the dispatch personnel that you have or may have COVID-19.7. Cover your cough and sneezes.8. Wash your hands often with soap and water for at least 20 seconds or clean your hands with an alcohol- based hand corporate strategy intern that contains at least 60% alcohol.9. As much as possible, stay in a specific room and away from other people in your home. Also, you should use a separate bathroom, if available. If you need to be around other peoplein or outside of the home, wear a face mask.10. Avoid sharing personal items with other people in your household, like dishes, towels, and bcfowkc78. Clean all surfaces that are touched often, like counters, tabletops, and doorknobs. Use household cleaning sprays or wipes according to the label instructions.patient instructed to call back if condition fails to improve or worsens.AllComments:Medication Management Patient Understands medications he ' s taking? Yes No Are there Barriers to Adherence? Yes No Has the patient been asked about herbal supplements and therapies, andOTC meds? Yes No Care Plan1. Patient has been queried about patient's goals/ preferences and functional/lifestyle goals at relevant visits. If relevant, describe: na2. Treatment goals as explained to the patient: above3. Are there barriers to meeting treatment goals? Yes No If Yes, please describe: environmental exposure, comorbid conditions, disease process, polypharmacy 4. Self-Management goals as described to the patient: Yes NoAs always, we strongly encourage a healthy diet and making physical activity a part of your every day life. If you have questions about how or where to start, please contact the office. Functional Status Description No Information Available Mental Status Description No Information Available Referrals Refer to Reason for Referral Status Appt Date Isabell Gonzalez PA-C Colonoscopy AMPARO please see my note - Scheduled history of diverticulitis with possible concerning area of inflammation on CT scan imaging [address] [address] [place] [address] [phone]
--- OUTSIDE RECORDS SUMMARY | 2020-01-01 03:59 | XMS REPORT | Continuity of Care Document ---
:1955 External Reference #:[id number] Author Name Giovanni Hayden MD Address [address] [place] [address] Care Team Providers Name Role Phone Beny Cramer - Neurological Care Team Information Cutter Operator Helper Surgery Pernell Andino MD - Family Medicine Care Team Information Cutter Operator Helper Giovanni Sood ([place] - [facility]) Care Team Information Cutter Operator Helper [phone] Otolaryngology Perez Aragon MD - Care Team Information Cutter Operator Helper [phone] Gastroenterology Isabell Gonzalez PA-C - Care Team Information Cutter Operator Helper [phone] Gastroenterology Problems Active Problems Provider Date Attention deficit hyperactivity disorder Pernell Andino M.D. Onset: 2006 Mixed hyperlipidemia Pernell Andino M.D. Onset: 08/30/2019 Attention deficit hyperactivity disorder, Pernell Andino M.D. Onset: 2014 predominantly inattentive type Disorder [...] CPT Code Status Date Vaccine Lot # [id number] Given 07/14/2018 Influenza Vac, Quadriv[place], [place] [address] Given 06/08/2018 Tetanus And Diptheria Adult Preservative Free [id number] >7Yrs 61542 Given 06/28/2014 DO Not Use Split Influenza Virus Vaccine [id number] 46688 Given 06/23/2013 DO Not Use Split Influenza Virus Vaccine [id number] 80063 Given 07/23/2011 DO Not Use Split Influenza Virus Vaccine [id number] 70187 Given 12/23/2007 Tdap Tetanus, W Pertussis [id number] 62927 Given 2000 Mumps Immunization Vital Signs Date Vital Result Comment 12/31/2019 10:41am BP Systolic 163 mmHg home reading BP Diastolic 115 mmHg home reading 08/30/2019 1:47pm BP Systolic 132 mmHg 142 syst on arrival BP Diastolic 72 mmHg 142 syst on arrival Heart Rate 68 /min Body Temperature 97.9 F Respiratory Rate 16 /min Height 72 inches 6'0" Weight 240.00 lb BMI (Body Mass Index) 32.5 kg/m2 Results Test Acquired Facility Test Result H/L Range Note Date Laboratory test 12/27/2019 [facility] Covid19, PCR Undetected Undetected 1 finding Laboratory test 10/01/2019 [facility] Surgical SEE RESULT 2 finding Pathology BELOW [...] Risk Factor 2.9 CALC 0.0-4.4 CBC Electronic Fma 08/18/2019 Mitchel Violet([facility]ma) WBC 7.9 x10^3/UL 4.0- 10.0 RBC 4.75 x10^6/UL 3.93-6.00 HGB 14.7 g/dL 12.0-17.0 HCT 44 % 35-50 MCV 93.1 fL 80.0-95.0 MCH 30.9 pg 25.6-32.2 MCHC 33.3 g/dL 32.2-36.0 RDW-CV 11.6 % 11.6-14.4 PLT 223 x10^3/UL 163-400 MPV 10.2 fL 9.4-12.4 Davi# 5.43 x10^3/UL 1.56-6.13 Lymph# 1.71 x10^3/UL 1.18-3.74 Cherokee# 0.55 x10^3/UL 0.24-0.82 Eos # 0.1 x10^3/UL 0.0-0.5 Baso # 0.05 x10^3/UL 0.01-0.08 Davi% 68.9 % 34.0-70.0 Lymph % 21.7 % 20.0-52.0 Cherokee% 7.0 % 5.0-12.0 Eos% 1.5 % 0.7-7.0 Baso% 0.6 % 0.1-1.2 Laboratory test finding 08/18/2019 Mitchel Lazo([facility]ma) PSA 0.3 ng/mL 0.0 -4.0 1 SARS-CoV-2 RNA is not detected. ADDITIONAL INFORMATION Testing was performed using the samira SARS-CoV-2 assay ([employer] on the samira 6800 System. Fact sheets for this Emergency Use Authorization (EUA) assay can be found at the following links: For Healthcare Providers: https://www.fda.gov/media/137939/download For Patients: https://www.fda.gov/media/112277/download Test Performed by: [address] [address] Plastic Extrusion Operator: Chad Koch M.D. Ph.D.; [facility]# [id number] 2 SEE RESULT BELOW Name: DELMA KLEIN : [address]: Jeffery Rebolledo MD Acct: [id number] Unit: [id number] AGE: 64 Location: ENDO Re10/01/19 SEX: M Status: DEP REF SPEC: [id number] MICHELL: 10/01/19- SUBM DR: Jeffery Rebolledo MD REQ: [id number] RECD: 10/01/19 STATUS: BEN NEWSOME DR: Pernell [...] CONTINUED ON NEXT PAGE DEPARTMENT OF PATHOLOGY, [address] [place] [address] Ruben Mota M.D. Director [facility] # [id number] GROSS DESCRIPTION 1. The specimen is received [...] 1428 END OF REPORT DEPARTMENT OF PATHOLOGY, [facility] [employer] [place], [place] [address] Ruben Mota M.D. Director [facility] # [id number] 3 RESULTS VERIFIED BY REPEAT ANALYSIS 4 consistent w/ previous results Procedures Date Code Description Status 08/30/2019 43934 CPHL SHQ Completed 02/13/2016 [id number] Colonoscopy Completed 10/04/2011 [id number] Colonoscopy Completed 11/24/2007 [id number] Colonoscopy Completed Medical Devices Description No Information [...] respiratory organs Assessments Date Code Description Provider 12/31/2019 I10 Essential (primary) hypertension Giovanni Hayden MD 12/31/2019 R19.7 Diarrhea, unspecified Giovanni Hayden MD 12/28/2019 R19.7 Diarrhea, unspecified Lyndsey Lopez, NICOLLE 12/28/2019 R05 Cough Lyndsey Lopez, NICOLLE 12/28/2019 Z71.9 Counseling, unspecified Lyndsey Lopez, NICOLLE 08/30/2019 Z00.01 Encounter for general adult medical Pernell Andino M.D. examination with abnormal findings 08/30/2019 R49.0 Dysphonia Pernell Andino M.D. 08/30/2019 E78.2 Mixed hyperlipidemia Pernell Andino M.D. 08/30/2019 I10 Essential (primary) hypertension Pernell Andino M.D. 08/30/2019 K21.9 Gastro-esophageal reflux disease without Pernell Andino M.D. esophagitis 08/30/2019 F90.0 Attention-deficit hyperactivity disorder, Pernell Andino M.D. predominantly inattentive type 08/30/2019 K57.90 Diverticulosis of intestine, part Pernell Andino M.D. unspecified, without perfo 08/30/2019 Z12.2 Encounter for screening for malignant Pernell Andino M.D. neoplasm of respiratory organs 08/18/2019 Z00.00 Encntr for general adult medical exam w/o Pernell Andino M.D. abnormal findings Plan of Treatment 12/31/2019 - Giovanni Hayden MDI10 Essential (primary) szpdkzlplkklW71.7 Diarrhea, unspecifiedAllComments:Medication Management Patient Understands medications he's taking? Yes No Are there Barriersto Adherence? Yes No Has the patient been asked about herbal supplements and therapies, and OTC meds? Yes No Functional Status Description No Information Available Mental Status Description No Information Available Referrals Refer to Reason for Referral Status Appt Date Isabell Gonzalez PA-C Colonoscopy AMPARO please see my note - Scheduled history of diverticulitis with possible concerning area of inflammation on CT scan imaging [place] [address] [phone]
--- OUTSIDE RECORDS SUMMARY | 2020-01-01 03:59 | XMS REPORT | Summary of Care ---
:1955 Author Organization [facility] Address [address] [place] [address] Care Team Providers Name Role Phone Pernell Andino MD Primary Care Provider Reason for Visit Auth/Cert Status Reason Specialty Diagnoses / Procedures Referred By Contact Referred To Contact Diagnoses large transverse colon polyp to be removed Anisha Saucedo MD [address] [facility] [address] [place] [id number] Email: [email or web address] Encounter Details Date Type Department Care Team Description 11/10/2019 Hospital Encounter GI Services Anisha Saucedo MD [address] [facility] [address] [place] [address] [address] [place] [address] [phone] Allergies Active Allergy Reactions Severity Noted Date Comments Irbesartan-Hydrochlorothia Nausea Only 11/10/2019 zide Other 11/10/2019 Adavat caused leg swelling documented as of this encounter (statuses as of 11/11/2019) Medications Medication Sig Dispensed Refills Start Date End Date Status PEG 3350-KCl-Na The day prior to 4000 mL 0 10/26/2019 Active Bicarb-NaCl 420 GM procedure between Oral Solution 2:30-5 begin Reconstituted drinking an 8 (NULYTELY)Indications: ounce glass every Screening for cancer 10-15 min until solution is finished Pantoprazole Sodium 40 Take 40 mg by 0 Active MG Oral Tablet Delayed mouth daily Release (PROTONIX) amLODIPine Besylate 10 Take 10 mg by 0 Active MG Oral Tablet mouth daily (NORVASC) Atorvastatin Calcium Take 20 mg by 0 Active 20 MG Oral Tablet mouth daily (LIPITOR) Metoprolol Succinate Take 50 mg by 0 Active ER 50 MG Oral Tablet mouth daily Extended Release 24 Hour (TOPROL-XL) Lisinopril 5 MG Oral Take 2.5 mg by 0 Active Tablet mouth daily (PRINIVIL,ZESTRIL) Aspirin 81 MG Oral Chew 81 mg by 0 Active Tablet Chewable Mouth daily documented as of this encounter (statuses as of 11/11/2019) Active Problems Not on filedocumented as of this encounter (statuses as of 11/11/2019) Social History Tobacco Use Types Packs/Day Years Used Date Former Smoker Quit: 11/10/2007 Smokeless Tobacco: Never Used Sex Assigned at Date Recorded Not on file Job Start Date Occupation Industry Not on file Not on file Not on file Travel History Travel Start Travel End No recent travel history available. documented as of this encounter Last Filed Vital Signs Vital Sign Reading Time Taken Comments Blood Pressure 131/92 11/10/2019 2:47 PM EST Pulse 77 11/10/2019 2:50 PM EST Temperature 36.5 11/10/2019 2:47 PM EST C (97.7 F) Respiratory Rate 16 11/10/2019 2:47 PM EST Oxygen Saturation 99% 11/10/2019 2:50 PM EST Inhaled Oxygen Concentration - - Weight 107 kg (236 lb) 11/10/2019 9:13 AM EST Height 182.9 cm (6') 11/10/2019 9:13 AM EST Body Mass Index 32.01 11/10/2019 9:13 AM EST documented in this encounter Plan of Treatment Name Type Priority Associated Diagnoses Date/Time EKG 12 Lead ECG Routine 11/10/2019 11:52 AM EST Name Type Priority Associated Order Schedule Diagnoses CBC Lab Routine Once for 1 Occurrences starting 11/10/2019 until 11/10/2019 Comprehensive Lab Routine Once for 1 Metabolic Panel Occurrences starting 11/10/2019 until 11/10/2019 Surgical Pathology Pathology and Routine Once for 1 Exam ( Only) Cytology Occurrences starting 11/10/2019 until 11/10/2019 Health Maintenance Due Date Last Done Comments Hepatitis C Screening (B. 1955 [id number]) MMR Vaccines (1 of 1 - Standard 1956 series) Varicella Vaccines (1 of 2 - 1956 2-dose childhood series) DTaP,Tdap,and Td Vaccines (1 - 01/06/1964 Tdap) HIV Screening 1970 Zoster Vaccines (1 of 2) 2007 Influenza Vaccine 06/22/2019 Pneumococcal Vaccine: 65+ Years (1 2022 of 2 - PCV13) Colon Cancer Screening 10 yrs 11/10/2029 11/10/2019 HIB Vaccines Aged Out No longer eligible based on patient's age to complete this topic Hepatitis A Vaccines Aged Out No longer eligible based on patient's age to complete this topic Hepatitis B Vaccines Aged Out No longer eligible based on patient's age to complete this topic IPV Vaccines Aged Out No longer eligible based on patient's age to complete this topic Pneumococcal Vaccine: Pediatrics Aged Out No longer eligible based on (0 to 5 Years) and At-Risk patient's age to complete Patients (6 to 64 Years) this topic documented as of this encounter Procedures Procedure Name Priority Date/Time Associated Comments Diagnosis EKG 12-LEAD - CMAXX 11/10/2019 11:52 REPORT AM EST EKG 12-LEAD - CMAXX 11/10/2019 11:52 REPORT AM EST EKG 12-LEAD Routine 11/10/2019 11:52 Results for this AM EST procedure are in the results section. CBC Routine 11/10/2019 11:51 Results for this AM EST procedure are in the results section. COMPREHENSIVE Routine 11/10/2019 11:51 Results for this METABOLIC PANEL AM EST procedure are in the results section. COLONOSCOPY 11/10/2019 12:00 AM EST documented in this encounter Results EKG 12-LEAD - CMAXX REPORT (11/10/2019 11:52 AM EST) Narrative Performed At EKG 12-LEAD - CMAXX REPORT (11/10/2019 11:52 AM EST) Narrative Performed At EKG 12 Lead (11/10/2019 11:52 AM EST) Specimen Narrative Performed At Ventricular Rate: [facility] EKG 72 BPM Atrial Rate: 72 BPM P-R Interval: 166 ms QRS Duration: 98 ms Q-T Interval: 410 ms QTC Calculation(Bazett): 448 ms P [place]: 0 degrees R [place]: -8 degrees T [place]: 9 degrees : SINUS RHYTHM : RSR' OR QR PATTERN IN V1 SUGGESTS RIGHT VENTRICULAR CONDUCTION : DELAY : BORDERLINE ECG : NO PREVIOUS ECGS AVAILABLE : Confirmed by MD JON DANIEL ([id number]) on 11/10/2019 2:23:10 : PM Procedure Note Interface, Received Via [employer] - 11/10/2019 2:23 PM EST Ventricular Rate: 72 BPM Atrial Rate: 72 BPM P-R Interval: 166 ms QRS Duration: 98 ms Q-T Interval: 410 ms QTC Calculation(Bazett): 448 ms P [place]: 0 degrees R [place]: -8 degrees T [place]: 9 degrees : SINUS RHYTHM : RSR' OR QR PATTERN IN V1 SUGGESTS RIGHT VENTRICULAR CONDUCTION : DELAY : BORDERLINE ECG : NO PREVIOUS ECGS AVAILABLE : Confirmed by MD JON DANIEL ([id number]) on 11/10/2019 2:23:10 : PM Performing Organization Address City/State/Zipcode Phone Number [facility] EKG Comprehensive Metabolic Panel (11/10/2019 11:51 AM EST) Albumin 4.8 3.5 - 5.2 g/dL [facility] Bilirubin, Total 1.9 (H) <1.2 mg/dL [facility] Calcium 9.3 8.8 - 10.2 [facility] mg/dL [facility] Chloride 101 98 - 107 mmol/L [facility] Creatinine 0.96 0.70 - 1.20 [facility] mg/dL [facility] Glucose 97 70 - 140 mg/dL [facility] Alkaline Phosphatase 48 40 - 129 U/L [facility] Potassium 4.1 3.4 - 5.1 [facility] mmol/L [facility] Total Protein 7.4 6.4 - 8.3 g/dL [facility] Sodium 138 136 - 145 [facility] mmol/L [facility] AST/SGO 27 <40 U/L [facility] Blood Urea Nitrogen 14 8 - 23 mg/dL [facility] Osmolality, Pola 287 275 - 300 [facility] mosm/kg [facility] BUN/Cre Ratio 15 [facility] Bicarbonate 24 22 - 29 mmol/L [facility] ALT/SGP 48 (H) <41 U/L [facility] Anion Gap 13 8 - 15 mmol/L [facility] A/G Ratio 1.8 [facility] GFR Non 87 >60 [facility] Algerian 2009 CDK-EPI mL/min/1.73m2 [facility] GFR >90 >60 [facility] 2009 CKD-EPI mL/min/1.73m2 [facility] Specimen Plasma Performing Organization Address [facility] Phone Number [facility] [address] [place] [address] [facility] [address] [place] [address] Pathology CBC (11/10/2019 11:51 AM EST) White Blood Cell 6.2 4 - 10 10*3/uL [facility] Red Blood Cell 4.84 4.6 - 6.1 [facility] 10*6/uL [facility] Hemoglobin 15.2 13.5 - 18 g/dL [facility] Hematocrit 45.0 41 - 53 % [facility] Mean Cell Volume 93.0 80 - 96 fL [facility] Mean Cell Hemoglobin 31.5 27 - 33 pg [facility] Mean Cell Hgb Conc 33.9 32.0 - 36.0 g/dL [facility] Red Cell Dist Width 12.2 11.5 - 14.5 % [facility] Platelet Count 215 150 - 400 [facility] 10*3/uL [facility] Specimen EDTA Whole Blood Performing Organization Address [facility] Phone Number [facility] [address] [place] [address] [phone] [facility] [address] [place] [address] Pathology documented in this encounter Administered Medications Medication Order MAR Action Action Date Dose Rate Site acetaminophen (TYLENOL) tablet Given 11/10/2019 4:16 PM EST 650 mg 650 mg 650 mg, Oral, Once, 11/10/19 at 1615, For 1 dose, Maximum daily dose of acetaminophen is 3,000 mg from all sources in 24 hours., documented in this encounter
--- NOTE | 2020-01-01 04:12 | ED ---
Complex/Multi-Sys Presentation - HPI Summary HPI Summary: 64 year old M presenting to [facility] via private car with a chief complaint of exhaustion, wooziness with minimal exertion, and a constant headache. Patient began exhibiting cough, SOB and fever on 12/25/2019 and went to a COVID mass clinic on 12/27/2019. Patients COVID results came back negative on 12/29/2019. He continues to feel exhausted, fatigued, woozy and with a headache. Patient reports having diarrhea and denies having trouble eating/drinking or denies vomiting. He also states that his fever has resolved. He is currently taking Tylenol and OTC medications for his sx. Patient works at [employer]. Patient has a PMHx of HTN, reflux, asthma and high cholesterol. Patient is an former smoker and occasionally drinks alcohol. He has a FHx of CAD. - History Of Current Complaint Chief Complaint: EDGeneral Time Seen by Provider: 01/01/20 02:51 Hx Obtained From: Patient Onset/Duration: Lasting Days, Still Present Severity Currently: Moderate Severity Initially: Mild Aggravating Factor(s): nothing Alleviating Factor(s): nothing Associated Signs And Symptoms: Positive: Headache, SOB - resolved, Cough - resolved, Diarrhea, Fever - Patient's fever has resolved.. Negative: Vomiting - Allergies/Home Medications Allergies/Adverse Reactions: Allergies Allergy/AdvReac Type Severity Reaction Status Date / Time hydrochlorothiazide Allergy Intermediate Dizziness Verified 01/01/20 02:47 [From Avalide] irbesartan [From Avalide] Allergy Intermediate Dizziness Verified 01/01/20 02:47 nifedipine [From Adalat] Allergy Intermediate Swelling Verified 01/01/20 02:47 tadalafil [From Cialis] Allergy Unknown Verified 01/01/20 02:47 Reaction Details Home Medications: Home Medications Aspirin EC TAB* [Ecotrin EC Low Dose 81 MG*] 81 mg PO DAILY 07/11/14 [History Confirmed 10/01/19] Atorvastatin* [Lipitor 20 MG*] 20 mg PO DAILY 07/11/14 [History Confirmed ] Lisinopril TAB* [Prinivil TAB 5 MG*] 2.5 mg PO DAILY 07/11/14 [History Confirmed 10/01/19] Metoprolol Tartrate TAB* [Lopressor TAB*] 50 mg PO QAM 07/11/14 [History Confirmed 10/01/19] amLODIPine TAB* [Norvasc 5 mg TAB*] 10 mg PO QPM 07/11/14 [History Confirmed 07/11] Pantoprazole TAB * [Protonix TAB*] 40 mg PO DAILY 09/30/19 [History Confirmed ] PMH/Surg Hx/FS Hx/Imm Hx Endocrine/Hematology History: Denies: Hx Diabetes Cardiovascular History: Reports: Hx Hypercholesterolemia, Hx Hypertension Denies: Hx Congestive Heart Failure, Hx Pacemaker/ICD Respiratory History: Reports: Hx Asthma - A CHILD GI History: Reports: Hx Gall Bladder Disease - NOW, Hx Gastroesophageal Reflux Disease, Other GI Disorders - hiatal hernia, diverticulitis History: Denies: Hx Renal Disease Musculoskeletal History: Reports: Hx Back Problems - 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 right shoulder 2001. REMOVAL OF CANCER ON R SIDE OF HEAD. REMOVAL OF BENIGN TUMER ON ABOVE OF L EYE, dajuan 2013. GALLBLADDER Hx Anesthesia Reactions: No Infectious Disease History: No Infectious Disease History: Denies: Traveled Outside the [place] in Last 30 Days - Family History Known Family History: Positive: Hypertension - Social History Alcohol Use: Weekly Hx Substance Use: No Substance Use Type: Reports: None Hx Tobacco Use: Yes Smoking Status (MU): Former Smoker - Additional Comments History Additional Comments: asthma as child, HTN, HLD, former smoker Review of Systems - ROS Summary Review of Systems Summary: Home Medications Medication Instructions Recorded Confirmed Type Aspirin EC TAB* [Ecotrin EC Low 81 mg PO DAILY 07/11/14 10/01/19 History Dose 81 MG*] Atorvastatin* [Lipitor 20 MG*] 20 mg PO DAILY 07/11/14 10/01/19 History Lisinopril TAB* [Prinivil TAB 5 2.5 mg PO DAILY 07/11/14 10/01/19 History MG*] Metoprolol Tartrate TAB* 50 mg PO QAM 07/11/14 10/01/19 History [Lopressor TAB*] amLODIPine TAB* [Norvasc 5 mg TAB*] 10 mg PO QPM 07/11/14 10/01/19 History Pantoprazole TAB * [Protonix TAB*] 40 mg PO DAILY 09/30/19 10/01/19 History Positive: Fever - resolved, Fatigue Positive: Shortness Of Breath - resolved, Cough - resolved Positive: Diarrhea. Negative: Vomiting Positive: Headache All Other Systems Reviewed And Are Negative: Yes Physical Exam - Summary Physical Exam Summary: General: Well-developed, Obese male, Mildly ill appearing. HEENT: Normocephalic, Atraumatic. Eyes: Conjuctiva normal, PERRL. Oropharynx: Clear, mucous membranes moist, (-) exudates. Neck: Soft, FROM, (-) lymphadenopathy, (-) thyromegaly, (-) JVD. Cardiovascular: Normal sinus rhythm, (-) murmur. Lungs: Decreased air exchange bilaterally. (-) wheezes, (-) rales, (-) rhonchi. Abdomen: Soft, non-tender, non-distended, (-) organomegaly, normal bowel sounds. Back: (-) CVA tenderness Extremities: No edema. Skin: Warm, dry, (-) rash. Neuro: Alert and oriented x3, moves all extremities equally. No ataxia. No gait disturbance. No sensory deficit. Normal strength, normal sensation. Psychiatric: Mood normal, affect normal. Triage Information Reviewed: Yes Vital Signs On Initial Exam: Initial Vitals Temp Pulse Resp BP Pulse Ox 97.9 F 77 24 142/88 96 01/01/20 02:44 01/01/20 02:44 01/01/20 02:44 01/01/20 02:44 01/01/20 02:44 Vital Signs Reviewed: Yes Procedures - Sedation Patient Received Moderate/Deep Sedation with Procedure: No Diagnostics - Vital Signs Vital Signs Temp Pulse Resp BP Pulse Ox 01/01/20 03:52 68 17 131/75 99 01/01/20 03:50 66 18 130/73 99 01/01/20 03:42 60 10 137/73 99 01/01/20 03:36 64 12 120/67 98 01/01/20 03:22 72 16 152/92 97 01/01/20 03:19 67 96 01/01/20 02:44 97.9 F 77 24 142/88 96 - Laboratory Result Diagrams: 01/01/20 03:40 01/01/20 03:40 Lab Statement: Any lab studies that have been ordered have been reviewed, and results considered in the medical decision making process. - Radiology CXR Radiology Interpretation Completed By: ED Physician Summary of Radiographic Findings: No infiltrate. No pleural effusion. Imaging report has been reviewed and interpreted by Dr. Wayne pending official report. - EKG 0336 Cardiac Rate: NL EKG Rhythm: Sinus Rhythm Summary of EKG Findings: EKG at 0336 reveals normal sinus rhythm with rate of 65 BPM, no acute changes, no ischemic changes. This EKG was reviewed and interpreted by Dr. Wayne. Re-Evaluation - Re-Evaluation 0505 Re-Evaluation Time: 05:00 Comment: I discussed all result. Discussed all symptoms that warrant return to the ED. Complex Multi-Symp Course/Dx Course Of Treatment: 64-year-old male presents from home by private vehicle with persistent illness. Patient states he started feeling sick last Friday. Had fevers, cough shortness of breath. Was tested for covid-19 on Friday. Was called Friday and told his results were negative. He states he still feels very fatigued and achy. Exhausted. With any effort. Very woozy. Headache. [id number] medication not helping. No more high fevers at this point. Shortness of breath mostly with exertion. On exam he is mildly ill -appearing was no specific findings otherwise. Afebrile. Workup demonstrates a normal white count. Negative influenza. Patient retested for Covid and is pending. Patient given IV fluids, Toradol and Zofran. Discharged home. Advised him to quarantine until test results. Plenty of fluids and rest. Tylenol ibuprofen as needed. Follow up with PCP. Follow up sooner for any worsening symptoms. - Diagnoses Provider Diagnoses: Viral syndrome Discharge ED - Sign-Out/Discharge Documenting (check all that apply): Patient Departure - Discharged to home. - Discharge Plan Condition: Stable Disposition: HOME Patient Education Materials: Viral Syndrome (ED) Forms: COVID-19 Tested & Isolation Referrals: Pernell Andino MD [Primary Care Provider] - 3 Days Additional Instructions: Please follow up with your primary care physician within three days. Please return to the Emergency Department for any new or worsening symptoms. - Billing Disposition and Condition Condition: STABLE Disposition: Home - Attestation Statements Document Initiated by Ulises: Yes Documenting Scribe: Eliana Morfin Provider For Whom Ulises is Documenting (Include Credential): Franny Wayne MD Scribe Attestation: Cami Nguyen Natalie George, scribed for Franny Wayne MD on 01/01/20 at 0544. Scribe Documentation Reviewed: Yes Provider Attestation: The documentation as recorded by the Cami magana Natalie George accurately reflects the service I personally performed and the decisions made by , Franny Wayne MD Status of Scribe Document: Viewed
[2020-01-01 04:25] LABS: ABS Basophils 0.1 10^3/ul (0-0.2); ABS Eosinophils 0.1 10^3/ul (0-0.6); ABS Lymphocytes 1.9 10^3/ul (1.0-4.8); ABS Monocytes 0.6 10^3/ul (0-0.8); ABS Neutrophils 4.2 10^3/ul (1.5-7.7); Eosinophil % 1.7 %; Hematocrit 42 % (42-52); Hemoglobin 14.4 g/dL (14.0-18.0); Lymphocyte % 27.7 %; Mean Corpuscular HGB Conc 34 g/dL (31-36); Mean Corpuscular Hemoglobin 31 pg (27-31); Mean Corpuscular Volume 92 fL (80-94); Mean Platelet Volume 9.6 fL (7.4-10.4); Platelet Count 212 10^3/uL (150-450); Red Cell Distribution Width 12 % (10-15); White Blood Count 6.9 10^3/uL (3.5-10.8)
[2020-01-01 04:29] LABS: INR 1.08 (0.82-1.09)
[2020-01-01 04:39] LABS: Influenza A Molecular Negative (Negative); Influenza B Molecular Negative (Negative)
[2020-01-01 04:42] LABS: Albumin 4.2 g/dL (3.2-5.2); Albumin/Globulin Ratio 1.8 (1-3); BUN/Creatinine Ratio 18.2 (8-20); Calcium 9.3 mg/dL (8.6-10.3); EGFR African American 106.2 (>60); EGFR Non-African American 87.8 (>60); Globulin 2.3 g/dL (2-4); Potassium 3.7 mmol/L (3.5-5.0); Total Bilirubin 1.7 mg/dL (0.2-1.0); Total Protein 6.5 g/dL (6.4-8.9)
[2020-01-01] MEDS ORDERED: Ketorolac INJ* 30 MG/ML 1 ML VIAL IV PUSH ONE (04:58)
[2020-01-01 05:37] VITALS: BP 124/75
== END 2020-01-01 05:15 | disposition home or self-care (01) ==
LOC: ED 02:41
DX: B34.9 Viral infection, unspecified (principal); R51 Headache; R06.02 Shortness of breath; R53.83 Other fatigue; I10 Essential (primary) hypertension; K21.9 Gastro-esophageal reflux disease without esophagitis; E78.00 Pure hypercholesterolemia, unspecified; R19.7 Diarrhea, unspecified; Z79.82 Long term (current) use of aspirin; Z87.891 Personal history of nicotine dependence; Z79.899 Other long term (current) drug therapy; Z88.8 Allergy status to other drugs, medicaments and biological substances; R94.31 Abnormal electrocardiogram [ECG] [EKG]
CPT/HCPCS: 36415; 71045; 80053; 83605; 84484; 85025; 85610; 87040; 87635; 93005; 96361; 96374; 96375; 99283; G2023; J1885; J2405

== ENCOUNTER 2021-01-29 06:04 | Inpatient (IN) ==
[~2021-01-29 06:04] MED LIST: Buffered Lidocaine 1% SYRIN 1 ml INTRADERM ONE; Famotidine IV 10 MG/ML 2 ml VIAL (20 mg) IV ONE; Lactated Ringers 1000 ml BAG 1,000 ML IV SCH
[2021-01-29] MEDS ORDERED: Heparin 5000 UNITS/ML 1 mL VIAL ONE (06:19)
[2021-01-29] MEDS ORDERED: Famotidine IV 10 MG/ML 2 ml VIAL (20 mg) ONE (06:19)
[2021-01-29] MEDS ORDERED: Ertapenem 1 GM in NS 0.9% 50 ML IVPB ONE (06:45)
[2021-01-29] MEDS ORDERED: Ondansetron 4 mg VIAL 2 MG/ML 2 ml VIAL ONE (07:11)
[2021-01-29] MEDS ORDERED: Midazolam 2 mg/2 ml VIAL 1 mg/ml 2 ml VIAL (2 mg) ONE (07:11)
[2021-01-29] MEDS ORDERED: Lidocaine 2% PF 5 ML VIAL ONE (07:11)
[2021-01-29] MEDS ORDERED: fentaNYL 100 mcg/2 ml 50 MCG/ML VIAL ONE ×3 (07:11→12:27)
[2021-01-29] MEDS ORDERED: Rocuronium 50 mg VIAL 10 mg/ml 5 ml VIAL (50 mg) ONE ×2 (07:11→10:01)
[2021-01-29] MEDS ORDERED: Propofol 10 MG/ML 20 ML BTL ONE ×2 (07:11→11:38)
[2021-01-29] MEDS ORDERED: Ondansetron 4 mg VIAL 2 MG/ML 2 ml VIAL IV PRN ×2 (08:15→12:03)
[2021-01-29] MEDS ORDERED: DiMENhydriNATE IV 50 mg/ml 1 ml VIAL IV PUSH PRN (08:15)
[2021-01-29] MEDS ORDERED: HYDROcodone/ACETAMIN 5/325 mg TAB PO PRN (08:15)
[2021-01-29] MEDS ORDERED: Naloxone 0.4 mg VIAL 0.4 mg/ml 1 ml VIAL IV PRN (08:15)
[2021-01-29] MEDS ORDERED: HYDROmorphone 1 MG/1 ML SYRINGE ONE (09:01)
[2021-01-29] MEDS: fentaNYL 100 mcg/2 ml 50 MCG/ML VIAL IV PRN ×2 (12:29→12:34)
[2021-01-29] MEDS: HYDROmorphone 0.5 MG/0.5 ML SYRINGE IV PRN (19:44)
[2021-01-30] MEDS: HYDROmorphone 0.5 MG/0.5 ML SYRINGE IV PRN ×4 (02:23→13:07)
[2021-01-30 06:37] LABS: ABS Lymphocytes 1.1 10^3/ul (1.0-4.8); ABS Neutrophils 8.8 10^3/ul (1.5-7.7); Hematocrit 39 % (42-52); Hemoglobin 13.3 g/dL (14.0-18.0); Lymphocyte % 9.7 %; Mean Corpuscular HGB Conc 34 g/dL (31-36); Mean Corpuscular Hemoglobin 32 pg (27-31); Mean Corpuscular Volume 93 fL (80-94); Mean Platelet Volume 8.6 fL (7.4-10.4); Platelet Count 216 10^3/uL (150-450); Red Blood Count 4.18 10^6 /uL (4.18-5.48); Red Cell Distribution Width 12 % (10-15); White Blood Count 10.9 10^3/uL (3.5-10.8)
[2021-01-30 06:53] LABS: Calcium 8.9 mg/dL (8.6-10.3); EGFR Non-African American 81.8 (>60); Potassium 4.2 mmol/L (3.5-5.0)
[2021-01-30] MEDS: Aspirin EC 81 mg TAB.EC (enteric coated) PO SCH (07:54)
[2021-01-30] MEDS: Polyethylene Glycol 3350 17 GM PACKET PO SCH (09:57)
[2021-01-30] MEDS: Enoxaparin 30 MG/0.3 ML SYR SUBCUT SCH (10:38)
[2021-01-31 07:29] LABS: Calcium 8.9 mg/dL (8.6-10.3); EGFR Non-African American 75.2 (>60); Potassium 4.1 mmol/L (3.5-5.0)
[2021-01-31 07:42] VITALS: BP 147/41
[2021-01-31 07:49] LABS: ABS Basophils 0.1 10^3/ul (0-0.2); ABS Eosinophils 0.1 10^3/ul (0-0.6); ABS Lymphocytes 1.8 10^3/ul (1.0-4.8); ABS Monocytes 0.7 10^3/ul (0-0.8); ABS Neutrophils 5.3 10^3/ul (1.5-7.7); Eosinophil % 1.2 %; Hematocrit 37 % (42-52); Hemoglobin 12.8 g/dL (14.0-18.0); Lymphocyte % 22.8 %; Mean Corpuscular HGB Conc 34 g/dL (31-36); Mean Corpuscular Hemoglobin 32 pg (27-31); Mean Corpuscular Volume 94 fL (80-94); Mean Platelet Volume 8.5 fL (7.4-10.4); Platelet Count 204 10^3/uL (150-450); Red Blood Count 3.99 10^6 /uL (4.18-5.48); Red Cell Distribution Width 12 % (10-15)
[2021-01-31] MEDS: Polyethylene Glycol 3350 17 GM PACKET PO SCH (08:25)
[2021-01-31] MEDS: Aspirin EC 81 mg TAB.EC (enteric coated) PO SCH (08:27)
[2021-01-31] MEDS: Enoxaparin 30 MG/0.3 ML SYR SUBCUT SCH (09:59)
== END 2021-01-31 11:20 | disposition home or self-care (01) | DRG 331 ==
LOC: AA 06:04 → SSU 13:24
PROVIDERS: ADMIT Surgery; ATTEND Surgery

== ENCOUNTER 2021-02-01 16:09 | Observation (INO) ==
[2021-02-01] MEDS ORDERED: HYDROmorphone 0.5 MG/0.5 ML SYRINGE IV SLOW PU PRN (16:30)
[2021-02-01] MEDS ORDERED: Ondansetron 4 mg VIAL 2 MG/ML 2 ml VIAL IV PRN (17:27)
[2021-02-01] MEDS: Lactated Ringers 1000 ml BAG 1,000 ML IV SCH (17:55)
[2021-02-01] MEDS ORDERED: Labetalol IV 5 MG/ML 20 ml VIAL IV PUSH PRN (18:58)
[2021-02-01 19:19] LABS: ABS Basophils 0.1 10^3/ul (0-0.2); ABS Eosinophils 0.1 10^3/ul (0-0.6); ABS Lymphocytes 1.3 10^3/ul (1.0-4.8); ABS Monocytes 0.7 10^3/ul (0-0.8); ABS Neutrophils 5.1 10^3/ul (1.5-7.7); Eosinophil % 1.5 %; Hematocrit 37 % (42-52); Hemoglobin 13.1 g/dL (14.0-18.0); Lymphocyte % 18.3 %; Mean Corpuscular HGB Conc 35 g/dL (31-36); Mean Corpuscular Hemoglobin 32 pg (27-31); Mean Corpuscular Volume 92 fL (80-94); Mean Platelet Volume 8.4 fL (7.4-10.4); Nucleated Red Blood Cells % 0.1; Platelet Count 209 10^3/uL (150-450); Red Blood Count 4.06 10^6 /uL (4.18-5.48); Red Cell Distribution Width 12 % (10-15); White Blood Count 7.3 10^3/uL (3.5-10.8)
[2021-02-01] MEDS ORDERED: Trimethobenzamide *IM* 100 mg/ml 2 ml VIAL (200 mg) IM PRN (19:24)
[2021-02-01 19:34] LABS: Calcium 9.3 mg/dL (8.6-10.3); EGFR African American 116.1 (>60); EGFR Non-African American 95.9 (>60); Potassium 4.1 mmol/L (3.5-5.0)
[2021-02-01] MEDS: Prochlorperazine 5 mg/ml 2 ml VIAL (10 mg) IV PRN (19:40)
[2021-02-02] MEDS: Lactated Ringers 1000 ml BAG 1,000 ML IV SCH ×2 (01:04→09:00)
[2021-02-02] MEDS: Prochlorperazine 5 mg/ml 2 ml VIAL (10 mg) IV PRN (02:04)
[2021-02-02 04:36] LABS: ABS Basophils 0.1 10^3/ul (0-0.2); ABS Eosinophils 0.1 10^3/ul (0-0.6); ABS Lymphocytes 1.4 10^3/ul (1.0-4.8); ABS Monocytes 0.6 10^3/ul (0-0.8); ABS Neutrophils 4.4 10^3/ul (1.5-7.7); Hematocrit 39 % (42-52); Lymphocyte % 21.2 %; Mean Corpuscular HGB Conc 34 g/dL (31-36); Mean Corpuscular Hemoglobin 32 pg (27-31); Mean Corpuscular Volume 93 fL (80-94); Mean Platelet Volume 8.2 fL (7.4-10.4); Platelet Count 218 10^3/uL (150-450); Red Blood Count 4.14 10^6 /uL (4.18-5.48); Red Cell Distribution Width 12 % (10-15); White Blood Count 6.6 10^3/uL (3.5-10.8)
[2021-02-02 04:55] LABS: Calcium 9.1 mg/dL (8.6-10.3); EGFR African American 104.1 (>60); EGFR Non-African American 86.1 (>60); Potassium 4.2 mmol/L (3.5-5.0)
[2021-02-02 15:43] VITALS: BP 146/66
== END 2021-02-02 14:10 | disposition home or self-care (01) ==
LOC: INTOOBSV 16:30 → SSU 16:30
PROVIDERS: ADMIT Surgery; ATTEND Surgery